=== PATIENT | female | born 1960 | race Caucasian/White ===

== ENCOUNTER 2022-03-14 07:44 | Day surgery (SDC) | payer OTHER ==
[2022-03-12 13:26] VITALS: BMI 31.9
[2022-03-14] MEDS ORDERED: Oxymetazoline HCl 0.05% (30 ML BOT) ONE ×2 (08:19→09:39)
[2022-03-14] MEDS ORDERED: Bacitracin Zinc Ointment 30 gm TUBE ONE (09:39)
[2022-03-14] MEDS ORDERED: Lidocaine 1% w/Epinephrine 1:200K 30 ML VIAL ONE (09:39)
[2022-03-14] MEDS ORDERED: fentaNYL Citrate/PF 100 MCG/2 ML SYRINGE ONE ×2 (09:50)
[2022-03-14] MEDS ORDERED: Famotidine/PF 20 mg/2ml Vial ONE (09:50)
[2022-03-14] MEDS ORDERED: ePHEDrine 50 MG/ML VIAL ONE (09:51)
[2022-03-14] MEDS ORDERED: Ondansetron PF 4 MG/2 ML Vial ONE (09:51)
[2022-03-14] MEDS ORDERED: Metoclopramide HCl 10 MG/2 ML VIAL ONE (09:51)
[2022-03-14] MEDS ORDERED: PROPOFOL 200 MG/20 ML VIAL ONE (09:51)
[2022-03-14] MEDS ORDERED: Lidocaine 1% PF 5 ML VIAL ONE (09:51)
[2022-03-14] MEDS ORDERED: Ketorolac Tromethamine 30 MG/ML VIAL ONE (09:51)
[2022-03-14] MEDS ORDERED: Dexamethasone 20 MG/5 ML VIAL ONE (09:51)
[2022-03-14] MEDS ORDERED: Fentanyl 100 MCG/2 ML VIAL ONE (10:59)
[2022-03-14] MEDS ORDERED: HYDROcodone/Acetaminophen 5/325 mg Tablet ONE (12:25)
== END 2022-03-14 13:10 | disposition home or self-care (01) ==
LOC: SDC 07:44
PROVIDERS: ATTEND Otolaryngology Plastic Surgery within the Head & Neck
PROC: 099S8ZZ Drainage of Right Frontal Sinus, Via Natural or Artificial Opening Endoscopic (ICD-10-PCS; principal; 2022-03-14)
PROC: 099Q8ZZ Drainage of Right Maxillary Sinus, Via Natural or Artificial Opening Endoscopic (ICD-10-PCS; principal; 2022-03-14)
PROC: 099T8ZZ Drainage of Left Frontal Sinus, Via Natural or Artificial Opening Endoscopic (ICD-10-PCS; principal; 2022-03-14)
PROC: 09BX8ZZ Excision of Left Sphenoid Sinus, Via Natural or Artificial Opening Endoscopic (ICD-10-PCS; principal; 2022-03-14)
PROC: 09TL0ZZ Resection of Nasal Turbinate, Open Approach (ICD-10-PCS; principal; 2022-03-14)
PROC: 09TV8ZZ Resection of Left Ethmoid Sinus, Via Natural or Artificial Opening Endoscopic (ICD-10-PCS; principal; 2022-03-14)
PROC: 8E09XBZ Computer Assisted Procedure of Head and Neck Region (ICD-10-PCS; principal; 2022-03-14)
PROC: 09TU8ZZ Resection of Right Ethmoid Sinus, Via Natural or Artificial Opening Endoscopic (ICD-10-PCS; principal; 2022-03-14)
PROC: 099R8ZZ Drainage of Left Maxillary Sinus, Via Natural or Artificial Opening Endoscopic (ICD-10-PCS; principal; 2022-03-14)
DX: J32.4 Chronic pansinusitis (principal); J34.3 Hypertrophy of nasal turbinates; J34.89 Other specified disorders of nose and nasal sinuses; G89.29 Other chronic pain; R51.9 Headache, unspecified; I10 Essential (primary) hypertension; G47.30 Sleep apnea, unspecified; F17.200 Nicotine dependence, unspecified, uncomplicated; E66.9 Obesity, unspecified; Z68.31 Body mass index [BMI] 31.0-31.9, adult; Z79.899 Other long term (current) drug therapy
CPT/HCPCS: 85014; 93005; 93010; J1100; J1885; J2405; J2704; J2765; J3010; J3490; S0028